=== PATIENT | female | born 1995 ===

== ENCOUNTER 2019-12-16 14:44 | Emergency (ER) | payer SELFPAY ==
[2019-12-16 15:32] VITALS: BP 126/71; PULSE 78; RESP 16; TEMP 36.8; O2SAT 98; BMI 22.1
--- NOTE | 2019-12-16 15:38 | DI.RAD.S_ITS ---
PROCEDURE: XR SHOULDER RT MIN 2V INDICATIONS: pain TECHNIQUE: 3 views of the shoulder were acquired. COMPARISON: None. FINDINGS: Bones: No fractures or dislocations. No suspicious bony lesions. Visualized ribs appear intact. Soft tissues: No suspicious soft tissue calcifications. IMPRESSION: Normal for age, no trauma found. Dictated by: Zhen Nunez M.D. on 12/16/2019 at 16:05 Approved by: Zhen Nunez M.D. on 12/16/2019 at 16:05
--- NOTE | 2019-12-16 19:03 | PC.NURSE ---
Reports feeling a pinched nerve in neck yesterday. Since, pain has increased and moved into neck, shoulder and arm. Numbness and tingling in forearm, hand, bicep. States it feels heavy too. Pt reports pain most relieved when arm is up over her head. Pain extends into right side of ribs.
[2019-12-16] MEDS: CYCLOBENZAPRINE 10 MG TABLET PO (19:46)
[2019-12-16] MEDS: LIDOCAINE PATCH 1 EACH ADH..PATCH TOP (19:47)
[2019-12-16] MEDS: KETOROLAC 60 MG/2 ML VIAL IM (19:47)
--- NOTE | 2019-12-16 20:01 | ED.UPPEXIN ---
HPI - Extremity Injury (Upper) <RHONDA Tucker - Last Filed: 12/16/19 20:28> General Chief Complaint: Extremity Injury, Upper Stated Complaint: shoulder pain Time Seen by Provider: 12/16/19 18:48 Source: patient Mode of arrival: Ambulatory Limitations: no limitations History of Present Illness HPI narrative: The patient is a 24-year-old female nonsmoker with history of tubal ligation who presents with a chief complaint of right shoulder pain. She states it started last night with no known injury or fall. She has taken ibuprofen last night and this morning with no relief. She states that is improved by holding her arm above her head, worsened by using her arm. She has never felt this pain before. It is described as shooting and stabbing. No recent surgeries, no recent travel or bed ridden status. Related Data Previous Rx's Medication Instructions Recorded cyclobenzaprine 10 mg PO TID PRN #20 tab 12/16/19 ketorolac 10 mg PO TID PRN #15 tab 12/16/19 lidocaine 1 patch TOP DAILY PRN #15 each 12/16/19 Review of Systems <RHONDA Tucker - Last Filed: 12/16/19 20:28> Review of Systems Narrative: GENERAL: Denies chills, fatigue, malaise, fever, sweats. HEENT: Denies sinus pain, ear pain, sore throat, difficulty swallowing, dizziness. RESPIRATORY: Denies dyspnea, cough, wheezing, hemoptysis, sputum. CARDIOVASCULAR: Denies chest pain, palpitations, orthopnea, edema, GASTROINTESTINAL: Denies nausea, vomiting, abdominal pain, diarrhea, constipation, melena. : Denies dysuria, frequency, incontinence, hematuria, urinary retention. MUSCULOSKELETAL: See HPI SKIN: Denies rash, skin lesions, or other NEUROLOGIC: Denies weakness, headache, numbness, change in speech, confusion, seizures, incoordination. PSYCHIATRIC: No concerning psychosocial issues. 12 point review of systems is negative except for those stated above Patient History <RHONDA Tucker - Last Filed: 12/16/19 20:28> Social History Smoking Status: Never smoker Smoking Status: Never smoker alcohol intake frequency: other Substance Use Type: marijuana Exam <RHONDA Tucker - Last Filed: 12/16/19 20:28> Narrative Exam Narrative: GENERAL: This is a well-nourished, well-developed patient, in no acute distress HEAD: Atraumatic. Normocephalic. No temporal or scalp tenderness. EYES: Pupils equal round and reactive. Extraocular motions intact. No scleral icterus. No injection or drainage. ENT: Nose without bleeding, purulent drainage or septal hematoma. Throat without erythema, tonsillar hypertrophy or exudate. Uvula midline. Airway patent. NECK: Trachea midline. No JVD or lymphadenopathy. Supple, nontender, no meningeal signs. CARDIOVASCULAR: Regular rate and rhythm RESPIRATORY: Clear to auscultation. Breath sounds equal bilaterally. No wheezes, rales, or rhonchi. No cough. No increased respiratory effort. No accessory muscle use. GASTROINTESTINAL: Abdomen soft, non-tender, nondistended. No hepato-splenomegaly, or palpable masses. No guarding. Active bowel sounds all 4 quadrants. EXTREMITIES: Generalized pain to palpation right shoulder, holding her right arm above head. Positive right radial pulse. Capillary refill less than 2 seconds. Sensation intact right fingers. Strength is equal upper extremities bilaterally. BACK: Nontender without deformity or crepitance. No flank tenderness. NEURO: AOx3. Strength is equal upper and lower extremities bilaterally. Sensation is intact right fingers. Capillary refill less than 2 seconds. Positive right radial pulse. SKIN: No rash or erythema on visible skin. No rash laceration or abrasion noted on right shoulder. Initial Vital Signs Initial Vital Signs: Vital Signs Temperature 98.3 F 12/16/19 15:32 Pulse Rate 78 12/16/19 15:32 Respiratory Rate 16 12/16/19 15:32 Blood Pressure 126/71 12/16/19 15:32 Pulse Oximetry 98 12/16/19 15:32 <Laci Lawrence MD - Last Filed: 12/17/19 08:10> Initial Vital Signs Initial Vital Signs: Vital Signs Temperature 98.3 F 12/16/19 15:32 Pulse Rate 78 12/16/19 15:32 Respiratory Rate 16 12/16/19 15:32 Blood Pressure 126/71 12/16/19 15:32 Pulse Oximetry 98 12/16/19 15:32 Scores <RHONDA Tucker - Last Filed: 12/16/19 20:28> GCS [place] coma scale eye opening: Spontaneous [place] coma scale verbal response: Orientated [place] coma scale motor response: Obey commands Joshua coma scale total score: 15 Wells' Criteria for DVT Active Cancer (Treatment within 6 months): No Bedridden recently >3 days or major surgery within 4 weeks: No Calf Swelling >3cm compared to other leg: No Collateral (nonvericose) superficial veins present: No Entire leg swollen: No Localized tenderness along the deep vein system: No Pitting edema, confined to symtomatic leg: No Paralysis, paresis, or recent plaster immobilization of ext: No Previously documented DVT: No Alternative dx to DVT as likely or more likely: No Wells' criteria for DVT: 0 Course <RHONDA Tucker - Last Filed: 12/16/19 20:28> Orders Ordered: Discontinued Medications Cyclobenzaprine HCl (Flexeril) 10 mg PO NOW ONE Stop: 12/16/19 19:22 Last Admin: 12/16/19 19:46 Dose: 10 mg Documented by: TA Ketorolac Tromethamine (Toradol) 60 mg IM NOW ONE Stop: 12/16/19 19:22 Last Admin: 12/16/19 19:47 Dose: 60 mg Documented by: TA Lidocaine (Lidoderm) 1 each TOP NOW ONE Stop: 12/16/19 19:22 Last Admin: 12/16/19 19:47 Dose: 1 each Documented by: TA Lidocaine (Lidoderm (Remove Patch)) 1 each TOP BEDTIME DARRYL Vital Signs Vital signs: Vital Signs - 8 hr 12/16/19 15:32 Temperature 98.3 F Pulse Rate 78 Respiratory Rate 16 Blood Pressure 126/71 Pulse Oximetry 98 <Laci Lawrence MD - Last Filed: 12/17/19 08:10> Orders Ordered: Discontinued Medications Cyclobenzaprine HCl (Flexeril) 10 mg PO NOW ONE Stop: 12/16/19 19:22 Last Admin: 12/16/19 19:46 Dose: 10 mg Documented by: TA Ketorolac Tromethamine (Toradol) 60 mg IM NOW ONE Stop: 12/16/19 19:22 Last Admin: 12/16/19 19:47 Dose: 60 mg Documented by: TA Lidocaine (Lidoderm) 1 each TOP NOW ONE Stop: 12/16/19 19:22 Last Admin: 12/16/19 19:47 Dose: 1 each Documented by: TA Lidocaine (Lidoderm (Remove Patch)) 1 each TOP BEDTIME DARRYL Vital Signs Vital signs: Vital Signs - 8 hr 12/16/19 15:32 Temperature 98.3 F Pulse Rate 78 Respiratory Rate 16 Blood Pressure 126/71 Pulse Oximetry 98 MDM - Extremity Injury (Upper) <RHONDA Tucker - Last Filed: 12/16/19 20:28> Imaging Data Extremity x-ray #1: Radiologist's Impression: [address] [place] [id number] XRay Report Signed Patient: Ni Meeks MMR#: [id number] : 1995Acct:[id number] Age/Sex: 24 / FDate of Service: 12/16/19 Loc: ED Accession Number: [id number] Procedure: XR shoulder RT min 2V Ordering Provider: Monserrat Baker PROCEDURE: XR SHOULDER RT MIN 2V INDICATIONS: pain TECHNIQUE: 3 views of the shoulder were acquired. COMPARISON: None. FINDINGS: Bones: No fractures or dislocations. No suspicious bony lesions. Visualized ribs appear intact. Soft tissues: No suspicious soft tissue calcifications. IMPRESSION: Normal for age, no trauma found. Dictated by: Zhen Nunez M.D. on 12/16/2019 at 16:05 Approved by: Zhen Nunez M.D. on 12/16/2019 at 16:05 [facility] Narrative Medical decision making narrative: The patient is a 24-year-old female who presents with a chief complaint of atraumatic shoulder pain, which she states feels like a pinched nerve radiating from her shoulder down to her hands. She is vascularly intact, with intact radial pulse and cap refill less than 2 seconds. She has a negative x-ray. She was given ketorolac, cyclobenzaprine lidocaine patches. I discussed at length the importance of following up with primary care provider, as well as coming back to the ER for acute concerns. Discussed not combining ketorolac with any other NSAIDs. Discussed Flexeril can be sedating. She does not want anything stronger and declines further prescription. Patient has no questions or concerns upon discharge and states understanding of return precautions as well as follow-up care. Discharge Plan Departure Patient Disposition: Home Clinical Impression: Acute pain of right shoulder Discharge Date/Time: 12/16/19 20:35 Instructions: How To Perform RICE (Rest, Ice, Compress, Elevate), DI for Shoulder Pain Activity Restrictions/Additional Instructions: Thank you for trusting us with your care today. As I discussed, your x-ray shows no acute fracture. This does not rule out a soft tissue injury such as a ligament or tendon injury. It is important that you follow up with primary care provider, especially if worsening or no improvement. There can be fractures that did not show up on initial x-ray. I sent 3 prescriptions to [facility] in an accordance. I have given you a prescription of Toradol. This is an NSAID. Do not combine it with other NSAIDs such as Aleve or ibuprofen. I suggest taking it with some food, as it can irritate your stomach. As discussed the cyclobenzaprine or Flexeril can be sedating. Do not take and drive or combine with anything else sedating. I also sent a prescription of lidocaine patches. These can stay on for 12 hours and then come off for 12 hours. Do not use heat over the lidocaine patch. Please follow-up with primary care provider in the next 48-72 hours. Please come back to the emergency department for any acute concerns. Prescriptions: New cyclobenzaprine 10 mg tablet 10 mg PO TID PRN (Reason: muscle spasm) Qty: 20 RF: 0 ketorolac 10 mg tablet 10 mg PO TID PRN (Reason: pain) Qty: 15 RF: 0 lidocaine 5 % adhesive patch,medicated 1 patch TOP DAILY PRN (Reason: pain) Qty: 15 RF: 0 Referrals: Chandan Valadez MD [Non-Staff] - Stand Alone Forms: Work Release Note
== END 2019-12-16 20:35 | disposition home or self-care (01) ==
PROVIDERS: Emergency Provider Nurse Practitioner Family
DX: M25.511 Pain in right shoulder (principal)
CPT/HCPCS: 73030; 96372; 99283; J1885

== ENCOUNTER → 2021-01-09 09:21 | Outpatient (CLI) | payer OTHER, SELFPAY ==
[2021-01-09 21:23] LABS: COVID19 - ORCAS (NP or Nasal) Negative (Negative)
== END ==
PROVIDERS: PCP Family Medicine; Visit Provider Family Medicine
DX: Z20.822 Contact with and (suspected) exposure to COVID-19 (principal)
CPT/HCPCS: U0003